=== PATIENT | male | born 2000 ===

== ENCOUNTER → 2024-02-19 08:12 | Outpatient (REF) | payer OTHER, SELFPAY | LOC: WOUND 08:12 | PROVIDERS: ATTENDING PHYSICIAN Surgery | DX: T23.262A Burn of second degree of back of left hand, initial encounter (principal); X10.2XXA Contact with fats and cooking oils, initial encounter; Y93.G9 Activity, other involving cooking and grilling; Y92.511 Restaurant or cafe as the place of occurrence of the external cause | CPT/HCPCS: 99213 ==

== ENCOUNTER → 2024-02-24 11:55 | Outpatient (REF) | payer OTHER, SELFPAY | LOC: WOUND 11:55 | PROVIDERS: ATTENDING PHYSICIAN Surgery | DX: T23.262A Burn of second degree of back of left hand, initial encounter (principal); X10.2XXA Contact with fats and cooking oils, initial encounter; Y93.89 Activity, other specified; Y92.511 Restaurant or cafe as the place of occurrence of the external cause; Y99.0 Civilian activity done for income or pay | CPT/HCPCS: 99212 ==